=== PATIENT | male | born 1965 | race Caucasian/White ===

== ENCOUNTER 2017-05-26 19:00 | Emergency (ER) | payer OTHER ==
[~2017-05-26] VITALS: Ht 182.9 cm; Wt 107.5 kg
[2017-05-26 19:09] VITALS: TEMP 36.8; Ht 182.9 cm; Wt 107.5 kg
[2017-05-26] MEDS ORDERED: KETOROLAC TROMETHAMINE 30 MG/ML VIAL IV STA (19:18)
[2017-05-26] MEDS ORDERED: ONDANSETRON INJ 2 MG/ML 2 ML VIAL IV STA (19:18)
[2017-05-26] MEDS ORDERED: MoRPHine SULFATE 4 MG/ML 1 ML CARP\\VIAL IV STA (19:18)
[2017-05-26 19:42] LABS: BASO % 0.4 %; BASO ABS # 0.05 K/uL (0-0.2); EOS % 1.3 %; EOS ABS # 0.17 K/uL (0-0.5); HEMATOCRIT 41.6 % (42-52); HEMOGLOBIN 14.4 g/dL (14.0-18.0); IG# 0.04 K/uL (0.00-0.02); LYMPH % 18.1 %; LYMPH ABS # 2.45 K/uL (1.2-3.4); MEAN CELL VOLUME 88.7 fL (80-100); MEAN CORPUSCULAR HEMOGLOBIN 30.7 pg (25-34); MEAN CORPUSCULAR HGB CONC 34.6 g/dl (32-36); MEAN PLATELET VOLUME 9.2 fL (7.4-10.4); MONO % 7.6 %; MONO ABS # 1.03 K/uL (0.11-0.59); NEUT % 72.3 %; NEUT ABS # 9.76 K/uL (1.4-6.5); PLATELET COUNT 336 K/uL (130-400); RED CELL DISTRIBUTION WIDTH CV 13.1 % (11.5-14.5); RED CELL DISTRIBUTION WIDTH SD 42.1 fL (36.4-46.3)
--- NOTE | 2017-05-26 19:58 | DIAGNOSTIC IMAGING REPORT ---
Right great toe 3 views CLINICAL HISTORY: Right great toe pain COMPARISON: None. DISCUSSION: No acute fractures or dislocations are visualized. There are mild arthritic changes the level the first metatarsal phalangeal joint. There is a small first metatarsal head spur. No destructive lesions are visualized IMPRESSION: 1. No acute fractures 2. Mild arthritic changes with soft tissue swelling at the level the first metatarsal phalangeal joint Electronically signed by: William Aquino M.D. 05/26/2017 7:57 PM Dictated Date/Time: 05/26/2017 7:56 PM
[2017-05-26 19:59] LABS: CALCIUM 8.8 mg/dl (8.5-10.1); CREATININE 1.21 mg/dl (0.60-1.40); POTASSIUM 4.7 mmol/L (3.5-5.1); URIC ACID 6.8 mg/dl (2.6-7.2)
[2017-05-26] MEDS ORDERED: PRED20TA2 PO ×2 (20:54→20:56)
[2017-05-26] MEDS ORDERED: INDO50CA97 PO (20:54)
[2017-05-26] MEDS ORDERED: CEPH-571 PO (20:55)
[2017-05-26] MEDS ORDERED: PRED20TA PO (20:56)
[2017-05-26] MEDS ORDERED: CEPHALEXIN MONOHYDRATE 250 MG CAP PO ONE (21:00)
[2017-05-26 21:10] VITALS: BP 142/87; PULSE 78; O2SAT 98
--- NOTE | 2017-05-26 21:57 | EMERGENCY ROOM VISIT NOTE ---
History Report prepared by Barbara: Royal Pérez Under the Supervision of: Dr. Eric Altamirano D.O. First contact with patient: 19:11 Chief Complaint: FOOT PAIN Stated Complaint: GOUT RIGHT FOOT History of Present Illness The patient is a 51 year old male who presents to the Emergency Room with complaints of persistent gout flare-up on right foot for three weeks. The patient speaks Mauritian and the son translated for the patient. The patient has a history of gout and has four flare ups in the past. He notes the pain is worse than his previous flare ups. He went to [facility] and was given steroids. Pain is a 10 out of 10. It is sharp and stabbing. Located in the right first toe. Currently significantly worse upon palpation. He notes the steroids provided mild relief, though he ran out and then his symptoms worsened. He describes the pain as throbbing. He denies any headaches, chest pain, abdominal pain, or fevers. No tingling or numbness. No other rashes. Source of History: patient, family Onset: three weeks Position: foot (right) Quality: other (throbbing, gout flare-up) Timing: other (persistent) Associated Symptoms: No fevers, No headache, No chest pain, No abdominal pain Review of Systems See HPI for pertinent positives & negatives. A total of 10 systems reviewed and were otherwise negative. Past Medical & Surgical Medical Problems: (1) Gout Family History No pertinent family history Social History Smoking Status: Never Smoker Smokeless Tobacco Use: No Alcohol Use: none Drug Use: none Marital Status: Housing Status: lives with family Occupation Status: employed Current/Historical Medications Scheduled Cephalexin (Keflex), 1 CAP PO QID Indomethacin (Indocin), 50 MG PO TID Prednisone (Prednisone), 0.5 TAB PO DAILY Allergies Coded Allergies: No Known Allergies (Unverified , 05/26/17) Physical Exam Vital Signs Date Time Temp Pulse Resp B/P (MAP) Pulse Ox O2 Delivery O2 Flow Rate FiO2 05/26/17 21:10 78 16 142/87 98 05/26/17 19:09 36.8 85 18 135/80 97 Room Air Physical Exam GENERAL: Sitting up in bed, alert, well appearing, well nourished, no distress, non-toxic EYE EXAM: normal conjunctiva. OROPHARYNX: no exudate, no erythema, lips, buccal mucosa, and tongue normal and mucous membranes are moist NECK: supple, no nuchal rigidity, no adenopathy, non-tender LUNGS: Clear to auscultation. Normal chest wall mechanics HEART: no murmurs, S1 normal and S2 normal ABDOMEN: abdomen soft, non-tender, normo-active bowel sounds, no masses, no rebound or guarding. BACK: Back is symmetrical on inspection and there is no deformity, no midline tenderness, no CVA tenderness. SKIN: no rashes and no bruising UPPER EXTREMITIES: upper extremities are grossly normal. LOWER EXTREMITIES: No pitting edema. Right foot with erythema and tenderness over 1st MTP tracking distally down the toe. Skin is warm and acutely tender. Skin intact. DP 2/4. Gross sensation intact. NEURO EXAM: Normal sensorium, cranial nerves II-XII grossly intact, normal speech, no gross weakness of arms, no gross weakness of legs. Medical Decision & Procedures ER Provider Diagnostic Interpretation: Radiology results as stated below per my review and the radiologist's interpretation: Right great toe 3 views CLINICAL HISTORY: Right great toe pain COMPARISON: None. DISCUSSION: No acute fractures or dislocations are visualized. There are mild arthritic changes the level the first metatarsal phalangeal joint. There is a small first metatarsal head spur. No destructive lesions are visualized IMPRESSION: 1. No acute fractures 2. Mild arthritic changes with soft tissue swelling at the level the first metatarsal phalangeal joint Electronically signed by: William Aquino M.D. 05/26/2017 7:57 PM Dictated Date/Time: 05/26/2017 7:56 PM Laboratory Results 05/26/17 19:30 Red Blood Count 4.69, Mean Corpuscular Volume 88.7, Mean Corpuscular Hemoglobin 30.7, Mean Corpuscular Hemoglobin Concent 34.6, Mean Platelet Volume 9.2, Neutrophils (%) (Auto) 72.3, Lymphocytes (%) (Auto) 18.1, Monocytes (%) (Auto) 7.6, Eosinophils (%) (Auto) 1.3, Basophils (%) (Auto) 0.4, Neutrophils # (Auto) 9.76, Lymphocytes # (Auto) 2.45, Monocytes # (Auto) 1.03, Eosinophils # (Auto) 0.17, Basophils # (Auto) 0.05 05/26/17 19:30 Test 05/26/17 19:30 White Blood Count 13.50 K/uL (4.8-10.8) Red Blood Count 4.69 M/uL (4.7-6.1) Hemoglobin 14.4 g/dL (14.0-18.0) Hematocrit 41.6 % (42-52) Mean Corpuscular Volume 88.7 fL (80-100) Mean Corpuscular Hemoglobin 30.7 pg (25-34) Mean Corpuscular Hemoglobin Concent 34.6 g/dl (32-36) Platelet Count 336 K/uL (130-400) Mean Platelet Volume 9.2 fL (7.4-10.4) Neutrophils (%) (Auto) 72.3 % Lymphocytes (%) (Auto) 18.1 % Monocytes (%) (Auto) 7.6 % Eosinophils (%) (Auto) 1.3 % Basophils (%) (Auto) 0.4 % Neutrophils # (Auto) 9.76 K/uL (1.4-6.5) Lymphocytes # (Auto) 2.45 K/uL (1.2-3.4) Monocytes # (Auto) 1.03 K/uL (0.11-0.59) Eosinophils # (Auto) 0.17 K/uL (0-0.5) Basophils # (Auto) 0.05 K/uL (0-0.2) RDW Standard Deviation 42.1 fL (36.4-46.3) RDW Coefficient of Variation 13.1 % (11.5-14.5) Immature Granulocyte % (Auto) 0.3 % Immature Granulocyte # (Auto) 0.04 K/uL (0.00-0.02) Anion Gap 5.0 mmol/L (3-11) Est Creatinine Clear Calc Drug Dose 92.5 ml/min Estimated GFR () 80.4 Estimated GFR (Non- 69.4 BUN/Creatinine Ratio 11.3 (10-20) Uric Acid 6.8 mg/dl (2.6-7.2) Calcium Level 8.8 mg/dl (8.5-10.1) Laboratory results per my review. Medications Administered Medications (Trade) Dose Ordered Sig/Chris Route Start Time Stop Time Status Last Admin Dose Admin Ketorolac Tromethamine (Toradol Inj) 30 mg NOW STAT IV 05/26/17 19:18 05/26/17 19:19 DC 05/26/17 19:50 30 MG Morphine Sulfate (MoRPHine SULFATE INJ) 4 mg NOW STAT IV 05/26/17 19:18 05/26/17 19:19 DC 05/26/17 19:49 4 MG Ondansetron HCl (Zofran Inj) 4 mg NOW STAT IV 05/26/17 19:18 05/26/17 19:19 DC 05/26/17 19:50 4 MG Cephalexin Monohydrate (Keflex Cap) 500 mg NOW ONCE PO 05/26/17 21:00 05/26/17 21:01 DC 05/26/17 21:09 500 MG ED Course ED COURSE: Vital signs were reviewed and showed hypertensive. The patients medical record was reviewed The above diagnostic studies were performed and reviewed. ED treatments and interventions as stated above. 1912: The patient was evaluated in room A12B. A complete history and physical examination was performed. 1917: Ordered Zofran 4 mg IV, Morphine Sulfate 4 mg IV, and Toradol 30 mg IV 2099: Ordered Keflex 500 mg PO 2100: Upon reevaluation, the patient was updated. I discussed my findings with the patient and he understands and agrees with the treatment plan. Based on the patients age, coexisting illnesses, exam and lab findings the decision to treat as an outpatient was made. The patient remained stable while under my care. The patient appeared well at the time of discharge. Medical Decision Prior records reviewed and summarized as above. Triage Nursing notes reviewed. The patient's history was concerning for swelling and redness of the skin. Differential diagnosis: Etiologies such as cellulitis, abscess, MRSA infection, DVT, necrotizing fasciitis, dermatitis, drug eruption, as well as others were entertained. Patient is a 51-year-old male that presents to ER for right toe pain which has been present for the past 3 weeks. He notes he has had exact same symptoms 3-4 times before in the past. He notes this feels like his gout which he typically gets in that toe. Denies any fevers. Labs show a mild leukocytosis of 13.5 thousand. BMP was unremarkable. On exam it does appear to be gout as it is acutely tender to palpation however was concerned with the duration that it has been here i.e. 3 weeks. Based on this I did elect to treat him for a gout flare and did cover him with steroids and indomethacin. I gave him a small dose of steroids as it was giving him indomethacin as well. I also gave him a short course of Keflex in case this is infectious although I favor this is less likely. Discussed with Pt concerning signs and symptoms to watch out for. Pt was instructed to follow up with their PCP and discussed with the patient their option to return to the ED at anytime for persistent or worsening symptoms. The appropriate anticipatory guidance and out-patient management, including indications for return to the emergency department, were explained at length to the patient and understood. [place] Drug Monitoring Program Search Results: no issues identified Medication Reconcilliation Current Medication List: was personally reviewed by me Blood Pressure Screening Patient's blood pressure: Elevated blood pressure Blood pressure disposition: Elevated BP felt to be situational Impression Primary Impression: Foot pain Scribe Attestation The scribe's documentation has been prepared under my direction and personally reviewed by me in its entirety. I confirm that the note above accurately reflects all work, treatment, procedures, and medical decision making performed by me. Departure Information Dispostion Home / Self-Care Prescriptions Prednisone (Prednisone) 20 Mg Tab 0.5 TAB PO DAILY for 4 Days, #2 TAB Prov: Eric Altamirano, DO 05/26/17 Cephalexin (KEFLEX) 500 Mg Cap 1 CAP PO QID for 10 Days, #40 CAP Prov: Eric Altamirano, DO 05/26/17 Indomethacin (INDOCIN) 50 Mg Cap 50 MG PO TID, #21 CAP WITH FOOD UNTIL PAIN RESOLVES Prov: Eric Altamirano, DO 05/26/17 Referrals No Doctor, Assigned (PCP) Forms HOME CARE DOCUMENTATION FORM, IMPORTANT VISIT INFORMATION Patient Instructions Gout Attack Tx, My [facility] Additional Instructions Please follow up with your primary care doctor with in the next 24 hours. Any worsening of your symptoms, please return to the ED immediately. This includes any fevers greater than 100.4, worsening pain, chest pain, shortness breath, persistent nausea, vomiting, unable to eat or drink, or any other concerning signs or symptoms from your standpoint. Please take antibiotics as prescribed. Problem Qualifiers Primary Impression: Foot pain Laterality: right Qualified Codes: M79.671 - Pain in right foot
== END 2017-05-26 21:10 | disposition home or self-care (01) ==
LOC: C.EDB 19:01 → C.EDA 21:10
DX: M79.671 Pain in right foot (principal)

== ENCOUNTER 2024-02-02 23:15 | Inpatient (IN) ==
[2024-02-02 23:50] LABS: Basophils # (auto) 0.08 K/uL (0.00-0.20); Basophils % (auto) 0.8 %; Eosinophils # (auto) 0.18 K/uL (0.00-0.50); Eosinophils % (auto) 1.9 %; Hematocrit (blood only) 41.9 % (42.0-52.0); Hemoglobin 14.3 g/dl (14.0-18.0); Immature Granulocytes # (auto) 0.02 K/uL (0.01-0.20); Immature Granulocytes % (auto) 0.2 %; Lymphocytes # (auto) 3.39 K/uL (1.20-3.40); Lymphocytes % (auto) 35.1 %; Mean Corpuscular Hemoglobin 30.8 pg (25.0-34.0); Mean Corpuscular Hgb Conc 34.1 g/dL (32.0-36.0); Mean Corpuscular Volume 90.3 fL (80.0-100.0); Mean Platelet Volume 10.2 fL (9.4-12.4); Monocytes # (auto) 0.85 K/uL (0.11-0.59); Monocytes % (auto) 8.8 %; Neutrophils # (auto) 5.13 K/uL (1.40-6.50); Neutrophils % (auto) 53.2 %; Platelet Count 259 K/uL (130-400); RDW Coefficient of Variation 12.8 % (11.5-14.5); Red Blood Count 4.64 M/uL (4.70-6.10); White Blood Count 9.65 K/ul (4.8-10.8)
--- NOTE | 2024-02-02 23:55 | Emergency Department Note ---
Impression & Plan Chest pain, Non-ST elevation CT (NSTEMI) ED Provider Note ED Provider Note NAME: ANTONIO LOCO AGE:58 SEX: Male : 1965 ARRIVES VIA: Private vehicle INFORMANT: Patient ED PROVIDER(s): Chelle Tinajero DO CHIEF COMPLAINT: Chest pain HPI: This is a 58 yo male who presents to the ER due to concern for chest pain. Significant other at bedside helps with translation. Patient began having central chest pressure/heaviness last evening. He went to bed and when he awoke the symptoms were gone. This evening the symptoms returned and they were concerned and came here for additional evaluation. No prior similar episodes. No history of heart or lung problems. No recent fevers, chills, or URI symptoms. Significant other states he does have a physical job but the activity required that has not changed recently. No other trauma. He does occasionally have heartburn, although states this feels different. Chest pain is otherwise nonradiating. He denies any accompanying shortness of breath, nausea or vomiting, dizziness, or diaphoresis. PAST MEDICAL HISTORY:See Below PAST SURGICAL HISTORY:See Below FAMILY HISTORY:See Below SOCIAL HISTORY:See Below HOME MEDICATIONS:See Below ALLERGIES:See Below VITALS:See Below PHYSICAL EXAMINATION: GENERAL: alert, well appearing, well nourished, no distress, non-toxic EYE EXAM: normal conjunctiva, PERRL and EOM's grossly intact OROPHARYNX: no exudate, no erythema, lips, buccal mucosa, and tongue normal and mucous membranes are moist NECK: supple, no nuchal rigidity, no adenopathy, non-tender LUNGS: Clear to auscultation. Normal chest wall mechanics, no w/r/r HEART: no murmurs, S1 normal and S2 normal, no pain with palpation ABDOMEN: abdomen soft, non-tender, normo-active bowel sounds, no masses, no rebound or guarding. BACK: Back is symmetrical on inspection and there is no deformity, no midline tenderness, no CVA tenderness. SKIN: no rashes, petechiae, orbruising UPPER EXTREMITIES: upper extremities are grossly normal. FROM, nml pulses b/l. LOWER EXTREMITIES: No pitting edema. FROM, nml pulses b/l. NEURO EXAM: Normal sensorium, cranial nerves II-XII grossly intact, normal speech, no facial droop,nogross weakness of arms, no gross weakness of legs. Gross sensation intact. No ataxia. Vital Signs: reviewed and remarkable Differential Diagnosis: acute coronary syndrome, pericarditis, pulmonary embolus, aortic dissection, pneumonia, pneumothorax, musculoskeletal pain, shingles, GERD, GI bleed, as well as others were considered MEDICAL DECISION MAKING: This is a 58-year-old male presents emergency ferment due to concern for chest pain. Patient was afebrile and hemodynamically stable on arrival. Labs drawn and sent, IV established, EKG and chest ray performed at bedside interpreted by me and patient monitored on telemetry. Patient given IV Tylenol and IV Pepcid as a precaution. EKG with very subtle findings compared to an EKG from 6 months ago. Lab reported patient's troponin significantly elevated. When I went to update the patient on this elevated troponin and need for additional evaluation, he reported he no longer had any chest pain. We discussed the need for further evaluation and likely cardiology consult and cardiac catheterization. Patient and significant other at bedside verbalized understanding were in agreement with the plan. Case discussed with the hospitalist team for additional evaluation and management. Given patient is pain-free there was no ST elevation noted on the EKG I do not feel patient requires immediate heart alert activation. Will continue to monitor for any changes and perform serial EKGs. Patient started on heparin drip and given aspirin additionally. Consultation(s): 0105: Discussed with Dr. Doty, [place] hospitalist team, for additional evaluation and mgmt. ER Treatment Provided: See below Diagnostics Interpreted By Me: -ECG: nsr at 70, nml axis, nml intervals, inverted T waves noted in aVL and V2, with slight appearance of evolving ST depression in lead I, V4 through V6; in comparison to a prior EKG from 09/10/2023, these ST changes are new however the T wave inversions are old -Cardiac Monitoring: An order was placed for continuous cardiac monitoring. The monitor shows a rate of 70 with normal sinus rhythm. -Laboratory studies: As stated above and show below. -Imaging studies: X-ray Chest: A single view study of the chest was reviewed and was negative for cardiomegaly, focal infiltrate, effusion, pulmonary edema, or wide mediastinum. Triage Nursing Note Reviewed Prior/Outside Records Reviewed Critical care: Critical care of 39 min performed to assess and manage high likelihood of life- threatening ACS, involving labs and imaging performed with assessment to evaluate chest pain diagnosis with frequent reassessment. This time includes bedside time, treatment discussions with patient/family/consultants, documentation time and excludes procedure time. Past Med/Surg History Problem List (Updated 02/03/24 @ 01:53 by Chelle Tinajero DO) Non-ST elevation CT (NSTEMI) (Acute) Chest pain (Acute) Hydronephrosis of right kidney Right ureteral stone Nephrolithiasis Foot pain (Acute) Gout (Chronic) Medical History Kidney stones Gout Obesity, Class I, BMI 30.0-34.9 (see actual BMI) (02/04/15) Low testosterone in male (06/23/22) Surgical History History of appendectomy Family History Other No family history of adverse response to anesthesia Social History (Updated 09/04/23 @ 12:09 by Andres Tyson) Smoking Status: Never smoker Second Hand Exposure: No; Do You Dip or Chew Tobacco: No; Hx Alcohol Use: No Hx Substance Use: No Preferred Language: Lebanese Communication Ability: Effective Communication Ability Comment: can sign own consent, will need manager business banking device Communication Tools: Other Supervisor Mail Carriers Required: Yes Beliefs That Will Affect Care: None marital status: Current Living Situation: Spouse current occupational status: employed 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 Feels Safe at Home: Yes Assistive Devices: None Allergies Allergies Allergy/AdvReac Type Severity Reaction Status Date / Time No Known Allergies Allergy Verified 02/03/24 00:51 Home Meds Home Medications Medication Instructions Recorded Confirmed No Known Home Medications 02/03/24 02/03/24 Results & Data (ED) Vital Signs Vital Signs - 24 hr 02/02/24 23:19 02/02/24 23:29 02/02/24 23:42 Temperature 36.5 C Temperature Source Temporal Artery Scan Pulse Rate 77 76 Pulse Rate from SpO2 Sensor Respiratory Rate 16 Respiratory Effort / Characteristics Non-Labored Spontaneous Respiratory Depth Normal Respiratory Pattern Regular Blood Pressure 142/89 H Blood Pressure Mean 106 Blood Pressure Position Sitting Pulse Oximetry 98 96 Oxygen Delivery Method Room Air Room Air Sepsis Recent Fever Within 48 Hours No Sepsis New/Unexplained Change in Mental Status N/A Sepsis Action Taken by Nursing No Action Required 02/03/24 00:00 02/03/24 00:03 02/03/24 00:30 Temperature Temperature Source Pulse Rate 69 63 Pulse Rate from SpO2 Sensor Respiratory Rate 21 22 Respiratory Effort / Characteristics Respiratory Depth Respiratory Pattern Blood Pressure 132/86 124/82 Blood Pressure Mean 108 106 Blood Pressure Position Pulse Oximetry 96 97 97 Oxygen Delivery Method Room Air Sepsis Recent Fever Within 48 Hours Sepsis New/Unexplained Change in Mental Status Sepsis Action Taken by Nursing 02/03/24 01:06 Temperature Temperature Source Pulse Rate 69 Pulse Rate from SpO2 Sensor 73 Respiratory Rate 18 Respiratory Effort / Characteristics Respiratory Depth Respiratory Pattern Blood Pressure 122/82 Blood Pressure Mean 87 Blood Pressure Position Pulse Oximetry 98 Oxygen Delivery Method Sepsis Recent Fever Within 48 Hours Sepsis New/Unexplained Change in Mental Status Sepsis Action Taken by Nursing Laboratory Data 02/02/24 23:30 02/02/24 23:30 Lab Results 02/02/24 Range/Units 23:30 WBC 9.65 (4.8-10.8) K/ul RBC 4.64 L (4.70-6.10) M/uL Hgb 14.3 (14.0-18.0) g/dl Hct 41.9 L (42.0-52.0) % MCV 90.3 (80.0-100.0) fL MCH 30.8 (25.0-34.0) pg MCHC 34.1 (32.0-36.0) g/dL RDW Std Deviation 42.0 (36.4-46.3) fL RDW Coeff of Joel 12.8 (11.5-14.5) % Plt Count 259 (130-400) K/uL MPV 10.2 (9.4-12.4) fL Immature Gran % (Auto) 0.2 % Neut % (Auto) 53.2 % Lymph % (Auto) 35.1 % Gladwin % (Auto) 8.8 % Eos % (Auto) 1.9 % Baso % (Auto) 0.8 % Neut # (Auto) 5.13 (1.40-6.50) K/uL Lymph # (Auto) 3.39 (1.20-3.40) K/uL Gladwin # (Auto) 0.85 H (0.11-0.59) K/uL Eos # (Auto) 0.18 (0.00-0.50) K/uL Baso # (Auto) 0.08 (0.00-0.20) K/uL Immature Gran # (Auto) 0.02 (0.01-0.20) K/uL D-Dimer < 190 (0-500) ug/L FEU Sodium 138 (136-145) mmol/L Potassium 4.3 (3.5-5.1) mmol/L Chloride 104 (98-107) mmol/L Carbon Dioxide 28 (21-32) mmol/L Anion Gap 6 (3-11) BUN 16 (6-23) mg/dl Creatinine 1.14 (0.6-1.4) mg/dl Est Cr Clr Drug Dosing 93.2 ml/min eGFR 75.01 BUN/Creatinine Ratio 14.0 (10-20) Glucose 114 H (70-99(Fasting)) mg/dl Calcium 9.4 (8.6-10.3) mg/dl Total Bilirubin 0.4 (0.2-1.0) mg/dl AST 42 H (13-39) U/L ALT 21 (7-52) U/L Alkaline Phosphatase 51 (34-104) U/L Troponin I High Sens 2543.2 H* (0-20) pg/ml Total Protein 7.1 (6.0-8.3) gm/dl Albumin 4.0 (3.4-5.0) gm/dl Globulin 3.1 (2.5-4.0) gm/dl Albumin/Globulin Ratio 1.3 (0.9-2) Lipase 56 (11-82) U/L Administered Medications Heparin Sodium/Dextrose (Heparin Sodium/Dextrose) 25,000 units in 500 mls @ 20 mls/hr IV .Q24H [facility]; Protocol Stop: 03/04/24 00:59 Last Admin: 02/03/24 01:22 Dose: 1,000 units/hr, 20 mls/hr Documented By: ISMAEL Co-signed By: ANDRE Sodium Chloride (Nss) 1,000 mls @ 125 mls/hr IV .Q8H LUI Stop: 02/04/24 00:44 Last Admin: 02/03/24 01:04 Dose: 125 mls/hr Documented By: ISMAEL Discontinued Medications Aspirin (Aspirin Chew 324 Mg) 324 mg PO NOW STA Stop: 02/03/24 00:42 Last Admin: 02/03/24 01:03 Dose: 324 mg Documented By: ISMAEL Heparin Sodium (Porcine) (Heparin Sod (Porcine) 1000 Unit/Ml) 1 units IV NOW ONE Stop: 02/03/24 00:58 Last Admin: 02/03/24 01:21 Dose: 4,000 units Documented By: ISMAEL Co-signed By: ANDRE Heparin Sodium/Dextrose (Heparin Iv Adult Wt-Based Low-Dose W/ Initial Bolus Protocol) 1 each IV NOW STA; Protocol Stop: 02/03/24 00:42 Last Admin: 02/03/24 01:24 Dose: Not Given Documented By: ISMAEL Acetaminophen (Ofirmev) 1,000 mg in 100 mls @ 400 mls/hr IV NOW STA Stop: 02/02/24 23:53 Last Infusion: 02/03/24 00:15 Dose: Infused Documented By: Admin: 02/02/24 23:56 Dose: 400 mls/hr Documented By: ISMAEL Famotidine (Pepcid 20mg Iv Push) 20 mg in 5 mls @ 2.5 mls/min IV NOW STA Stop: 02/02/24 23:40 Last Admin: 02/02/24 23:56 Dose: 2.5 mls/min Documented By: ISMAEL Nitroglycerin (Nitroglycerin 2% Ointment 30gm Tube) 0.5 inch EXT NOW STA Stop: 02/03/24 00:42 Last Admin: 02/03/24 01:04 Dose: 0.5 inch Documented By: ISMAEL Discharge Plan Visit Data Chief Complaint: Chest Pain Stated Complaint: CHEST PAIN ED Provider: Chelle Tinajero Discharge Problem: Chest pain, Non-ST elevation CT (NSTEMI) Forms Stand Alone Forms: RxApps Prescriptions Prescriptions: No Action No Known Home Medications Referrals Referrals: [facility],Medicine [Primary Care Provider] -
[2024-02-02] MEDS: ACETAMINOPHEN 1,000 MG/100 ML VIAL IV STA (23:56)
[2024-02-02] MEDS: FAMOTIDINE 20MG IV PUSH 20 MG/5 ML SYR IV STA (23:56)
[2024-02-03 00:08] LABS: Albumin Globulin Ratio 1.3 (0.9-2); Bilirubin,Total 0.4 mg/dl (0.2-1.0); Calcium 9.4 mg/dl (8.6-10.3); Creatinine Clr Calc Pharmacy 93.2 ml/min; Globulin 3.1 gm/dl (2.5-4.0); Potassium 4.3 mmol/L (3.5-5.1); Total Protein 7.1 gm/dl (6.0-8.3)
[2024-02-03 00:24] LABS: D Dimer < 190 ug/L FEU (0-500)
[2024-02-03 00:29] LABS: Troponin I High Sensitivity 2543.2 pg/ml (0-20)
[2024-02-03] MEDS: ASPIRIN CHEW 324 MG PO STA (01:03)
[2024-02-03] MEDS: NITROGLYCERIN 2% OINTMENT 30GM TUBE EXT STA (01:04)
[2024-02-03] MEDS: SODIUM CHLORIDE 0.9% 1,000 ML IV SCH (01:04)
--- NOTE | 2024-02-03 01:13 | History & Physical Report ---
Date of Service February 03, 2024 Assessment & Plan (1) Non-ST elevation GA (NSTEMI): Plan: No ST elevations noted on EKG. CP resolved. Initial trop significantly elevated at 2543.2. 2 hour repeat pending. Patient started on heparin gtt, nitropaste applied, and given 324 ASA chew. Will start daily 81 mg ASA. Reviewed labs from CV - patient with mild dyslipidemia total 219, LDL 129, HDL 45. Started on moderate intensity statin. Consult cards for possible cardiac cath. IVF @ 125 mL/hr while NPO/giving short acting vasodilators. Trend Trop to peak Medical management - ASA, statin, HbA1c, lipids, TSH NPO for possible cath cards consult - appreciate recs maintain CP free status - can do PRN nitro, morphine, nitropaste etc if recurrent CP get EKG, if refractory or ST elevations develop - call heart alert (2) Chest pain: Plan: See above (3) Gout: Plan: Per CV chart review patient is on allopurinol. Not listed on med list in [facility]. Can resume if confirmed. (4) Dyslipidemia: Plan: Noted in labs outpatient > 1 year ago - Tc 219 LDL 129 HDL 45. Calculated ASCVD risk as intermediate with a 7.7% risk of cardiovascular event in the next 10 years. Would start statin regardless of possible cath findings. Plan Code status: full DVT ppx: heparin gtt, SCDs FENGI: NPO, IVF @ 125 mL/hr Dispo: PCU/Tele History of Present Illness Chief Complaint: CP Primary Care Provider: [facility] 58 y/o with a PMHx of gout and dyslipidemia here for evaluation of chest pain. Patient with non-radiating substernal chest pain. No SOB or diaphoresis. No nausea or vomiting. No change in bowel or urinary habits. No blood in the stool. No abdominal pain or other concerns. No calf pain. No recent long car trips or plane rides. Symptoms started the evening of 01/31 and resolved after a night of sleep. Symptoms recurred today prompting evaluation in the ED. Patient received IV Tylenol and famotidine. Work up was initiated and significant for a trop of 2543.2. Patient given ASA 324 chew and started on a heparin gtt. No ST elevations noted on EKG and chest pain had resolved upon reassessment, so heart alert was not called. Hospitalist team consulted for admission for NSTEMI. Upon my interview patient is chest pain free. No new complaints. Expresses understanding of current condition and is accepting of admission with a full code status. Patient primarily Surinamese speaking. at bedside who interprets what the patient does not understand. Allergies Allergy/AdvReac Type Severity Reaction Status Date / Time No Known Allergies Allergy Verified 02/03/24 00:51 Home Medications Medication Instructions Recorded Confirmed Type No Known Home Medications 02/03/24 02/03/24 History Past Med/Surg History Problem List Dyslipidemia Non-ST elevation GA (NSTEMI) (Acute) Chest pain (Acute) Hydronephrosis of right kidney Right ureteral stone Nephrolithiasis Foot pain (Acute) Gout (Chronic) Medical History Kidney stones Gout Obesity, Class I, BMI 30.0-34.9 (see actual BMI) (02/04/15) Low testosterone in male (06/23/22) Surgical History History of appendectomy Family History Other No family history of adverse response to anesthesia Social History Smoking Status: Never smoker Second Hand Exposure: No; Do You Dip or Chew Tobacco: No; Hx Alcohol Use: No Hx Substance Use: No Preferred Language: Surinamese Communication Ability: Effective Communication Ability Comment: can sign own consent, will need medicare insurance specialist device Communication Tools: Other Carrier Loader Required: Yes Beliefs That Will Affect Care: None marital status: Current Living Situation: Spouse current occupational status: employed 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 Feels Safe at Home: Yes Assistive Devices: None Review of Systems 2 Review of Systems: See HPI Physical Exam 2 Physical Exam: Gen: well appearing patient in NAD HEENT: AT NC MMM Resp: CTAB no wheezing no increased work of breathing CV: RRR no m/r/g clinically well perfused Abd: soft, non-distended MSK: no obvious deformities Skin: no rashes or bruising Neuro: alert and oriented Psych: appropriate mood and affect Results & Data Results & Data Vital Signs (Past 12 Hours) Vital Signs Temp Pulse Resp BP Pulse Ox O2 Del Method 02/03/24 01:06 69 18 122/82 98 02/03/24 00:30 63 22 124/82 97 02/03/24 00:03 97 Room Air 02/03/24 00:00 69 21 132/86 96 02/02/24 23:42 96 Room Air 02/02/24 23:29 76 02/02/24 23:19 36.5 C 77 16 142/89 H 98 Room Air Laboratory Results 02/02/24 23:30 02/02/24 23:30 Code Status & VTE Plan VTE Prophylaxis Plan Reason for no VTE drug order: Contraindicated Supervising Physician Co-Signing Physician Notes Patient seen and examined, chart reviewed, case discussed with Dr. Mane and I agree with the assessment and plan as above. Patient is a 58yo male presenting with chest pain. Initial glhxmisk=5693.[address] elevations on EKG Patient comfortable on exam, no chest pain +S1/S2, regular, no m/r/g CTA, no rales/rhonchi/wheezes Abd soft, NT/ND Ext warm, well perfused without clubbing/cyanosis or edema Labs and images reviewed Assessment/Plan NSTEMI - patient with CP, elevation of troponin on arrival 2543.2 --> 3154.8. EKG with some inferior-lateral ST depression. Patient has been started on a heparin gtt Remains chest pain free Admit to PCU Continue Heparin gtt Initiate daily ASA and Crestor Will keep NPO for possible cath in AM Cardiology input appreciated Remainder as above Resident Activity Tracking Resident Involvement: Resident Care Provided Care Provided: Adult Hospital Medicine
[2024-02-03] MEDS: HEPARIN SOD (PORCINE) 1000 UNIT/ML IV ONE (01:21)
[2024-02-03] MEDS: HEPARIN SODIUM/DEXTROSE 25,000 UNITS/500 ML BAG IV SCH (01:22)
[2024-02-03] MEDS: Heparin IV Adult Wt-Based Low-Dose w/ INITIAL Bolus Protocol IV STA (01:24)
[2024-02-03 02:06] LABS: INR 0.9 (0.9-1.1); Partial Thromboplastin Ratio 0.9; Partial Thromboplastin Time 25 Seconds (21-31); Prothrombin Time 10.3 Seconds (9.0-12.0)
--- NOTE | 2024-02-03 02:10 | XRay Report ---
Exam(s): XR CXR 1 VIEW EXAM: XR Chest, 1 View CLINICAL HISTORY: Reason for exam: Chest pain, nonspecific. TECHNIQUE: Frontal view of the chest. COMPARISON: Prior chest x-ray from September 10, 2023. FINDINGS: Lungs: Mild to moderate peribronchial thickening of the central and lower lobe bronchi with increased interstitial opacities in the lower lobes. No consolidation. Pleural space: Unremarkable. No pneumothorax. Heart: Unremarkable. No cardiomegaly. Mediastinum: Unremarkable. Normal mediastinal contour. Bones/joints: Unremarkable. No acute fracture. IMPRESSION: Findings concerning for bronchitis with pneumonitis, which may be of infectious or inflammatory etiologies. No consolidation or pleural effusion. Electronically signed by: Sherri Dockery MD 02/03/24 02:09 AM
[2024-02-03] MEDS ORDERED: ONDANSETRON INJ 2 MG/ML 2 ML VIAL IV PRN (03:28)
--- NOTE | 2024-02-03 03:35 | Billing Data ---
Date of Service February 03, 2024 Coding Level of Care Code 42499 INT INP/OBS CARE
[2024-02-03 07:36] LABS: Hematocrit (blood only) 40.5 % (42.0-52.0); Hemoglobin 13.8 g/dl (14.0-18.0); Mean Corpuscular Hemoglobin 30.9 pg (25.0-34.0); Mean Corpuscular Hgb Conc 34.1 g/dL (32.0-36.0); Mean Corpuscular Volume 90.8 fL (80.0-100.0); Mean Platelet Volume 10.3 fL (9.4-12.4); Platelet Count 236 K/uL (130-400); RDW Coefficient of Variation 12.9 % (11.5-14.5); RDW Standard Deviation 42.5 fL (36.4-46.3); Red Blood Count 4.46 M/uL (4.70-6.10); White Blood Count 7.45 K/ul (4.8-10.8)
[2024-02-03 07:56] LABS: Albumin Globulin Ratio 1.4 (0.9-2); Albumin Level 3.8 gm/dl (3.4-5.0); BUN Creatinine Ratio 14.4 (10-20); Bilirubin,Total 0.5 mg/dl (0.2-1.0); Calcium 8.9 mg/dl (8.6-10.3); Chol HDL Ratio 4.7 (0-5); Creatinine Clr Calc Pharmacy 109.2 ml/min; Globulin 2.8 gm/dl (2.5-4.0); Potassium 4.5 mmol/L (3.5-5.1); Total Protein 6.6 gm/dl (6.0-8.3)
[2024-02-03 08:05] LABS: ANTI-Xa, UFH(UnfractionatedHep 0.26 IU/ml (0.3-0.7)
[2024-02-03 08:11] LABS: Thyroid Stimulating Hormone 1.629 uIu/ml (0.300-4.500)
[2024-02-03] MEDS: ROSUVASTATIN CALCIUM 20 MG TAB PO SCH (08:42)
[2024-02-03] MEDS: ASPIRIN 81 MG ECTAB PO SCH (08:42)
--- NOTE | 2024-02-03 09:11 | Cardiology Consultation ---
Date of Consultation February 03, 2024 Assessment & Plan (1) Non-ST elevation KS (NSTEMI): (2) Dyslipidemia: Plan ASSESSMENT/PLAN: 1. NSTEMI: Chest pain-free currently. Discussed the diagnosis. Recommend coronary angiography. Risk and benefits of the procedure were discussed with him in detail. He is given informed consent to proceed with cardiac catheterization. He was made aware that PCI is available. He was made aware that CABG is not available at this facility. Continue aspirin. Recommend high intensity statin therapy. Continue heparin drip for now. Keep n.p.o. until after the procedure. Cardiac rehab. Echo ordered and currently pending. 2. Dyslipidemia: HDL low. LDL elevated if found to have CAD. High intensity statin therapy if CAD confirmed. 3. Disposition: Cardiology will continue to follow. Patient care communicated with Dr. Veras of the primary hospitalist service. Highly complex medical issues. Thank you for allowing me to participate in the care of your patient. Please call for any other questions or concerns. Sincerely, Mushtaq Gayle M.D. History of Present Illness Reason for Consultation: "CP, elevated trop" Requesting Physician: Nkechi Mane MD Attending Physician: Eric Veras, History of Present Illness Mr. Honeycutt is a very pleasant 58-year-old gentleman who has a history of dyslipidemia and gout. He is Zambian-speaking. History was obtained via [place] community living specialist (#[id number]) via translation electronic device. He was admitted on 02/03/2024 with chest discomfort and elevated high- sensitivity troponin, with the initial value of 2543, and trending upward. He describes substernal chest discomfort as a pushing sensation. He first noticed it 2 days ago when in bed. He initially stated that he felt well during the day but after further questioning, had mild chest discomfort with exertion at work. He has noted increased dyspnea on exertion recently at work. While having the pain, he denies radiation, or associated symptoms such as diaphoresis or dyspnea. With the first episode of chest discomfort 2 days ago, he used Advil and diluted vinegar and the pain resolved rather quickly. Last night, he did the same however the symptoms persisted so he came to the hospital. He estimates that this more recent episode lasted 2 hours and resolved in the ER. He has not had any further chest discomfort. He denies shortness of breath currently. He denies syncope, near syncope, palpitations, edema, melena, hematochezia, hematuria, or other bleeding. He denies any recent nausea, vomiting, fevers, or chills. He is active with his job. 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 Although not listed, his only outpatient medication is allopurinol for gout. Review of systems: As above. Family history: No known premature CAD. Social history: He denies tobacco, alcohol, or drug abuse. He lives at home with his and teenage daughter. He has 4 children total. 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 Originally from [facility] and moved to the [facility] in approximately 2005. His was present at the bedside. Allergies Allergy/AdvReac Type Severity Reaction Status Date / Time No Known Allergies Allergy Verified 02/03/24 00:51 Home Medications Medication Instructions Recorded Confirmed Type No Known Home Medications 02/03/24 02/03/24 History Problem List Dyslipidemia Non-ST elevation [place] (NSTEMI) (Acute) Chest pain (Acute) Hydronephrosis of right kidney Right ureteral stone Nephrolithiasis Foot pain (Acute) Gout (Chronic) Patient History Medical History Kidney stones Gout Obesity, Class I, BMI 30.0-34.9 (see actual BMI) (02/04/15) Low testosterone in male (06/23/22) Surgical History History of appendectomy Family History Other No family history of adverse response to anesthesia Social History Smoking Status: Never smoker Second Hand Exposure: No; Do You Dip or Chew Tobacco: No; Hx Alcohol Use: No Hx Substance Use: No Preferred Language: Zambian Communication Ability: Effective Communication Ability Comment: can sign own consent, will need community living specialist device Communication Tools: Other Ornament Stapler Required: Yes Beliefs That Will Affect Care: None marital status: Current Living Situation: Spouse current occupational status: employed 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 Alert. HEENT: Anicteric sclera. Neck: No JVD. No bruits. Normal carotid upstrokes bilaterally. Cardiac: Regular. Normal S1-S2. No murmurs, rubs, or gallops. Pulmonary: Clear to auscultation bilaterally without wheezes, rales, or rhonchi. Abdomen: Soft, nontender, nondistended, with normoactive bowel sounds. No bruits noted. Extremities: 2+ radial pulses bilaterally. 2+ posterior tibialis pulses bilaterally. No edema or cyanosis. Results & Data Vital Signs (Past 12 Hours) Vital Signs Temp Pulse Pulse Resp BP BP Pulse Ox 02/03/24 08:18 36.4 C L 63 17 112/71 93 02/03/24 03:40 64 02/03/24 03:30 36.6 C 72 16 133/84 98 02/03/24 03:01 36.9 C 60 22 113/77 97 02/03/24 02:30 60 17 123/84 96 02/03/24 02:00 66 17 126/89 98 02/03/24 01:27 62 20 125/90 98 02/03/24 01:06 69 18 122/82 98 02/03/24 00:30 63 22 124/82 97 02/03/24 00:03 97 02/03/24 00:00 69 21 132/86 96 02/02/24 23:42 96 02/02/24 23:29 76 02/02/24 23:19 36.5 C 77 16 142/89 H 98 O2 Del Method 02/03/24 08:18 Room Air 02/03/24 03:40 02/03/24 03:30 Room Air 02/03/24 03:01 Room Air 02/03/24 02:30 Room Air 02/03/24 02:00 02/03/24 01:27 02/03/24 01:06 02/03/24 00:30 02/03/24 00:03 Room Air 02/03/24 00:00 02/02/24 23:42 Room Air 02/02/24 23:29 02/02/24 23:19 Room Air Laboratory Results Laboratory Results - last 24 hr 02/02/24 02/03/24 02/03/24 23:30 02:20 07:12 WBC 9.65 7.45 RBC 4.64 L 4.46 L Hgb 14.3 13.8 L Hct 41.9 L 40.5 L MCV 90.3 90.8 MCH 30.8 30.9 MCHC 34.1 34.1 RDW Std Deviation 42.0 42.5 RDW Coeff of Joel 12.8 12.9 Plt Count 259 236 MPV 10.2 10.3 Immature Gran % (Auto) 0.2 Neut % (Auto) 53.2 Lymph % (Auto) 35.1 [place] % (Auto) 8.8 Eos % (Auto) 1.9 Baso % (Auto) 0.8 Neut # (Auto) 5.13 Lymph # (Auto) 3.39 [place] # (Auto) 0.85 H Eos # (Auto) 0.18 Baso # (Auto) 0.08 Immature Gran # (Auto) 0.02 PT 10.3 INR 0.9 APTT 25 PTT Ratio 0.9 D-Dimer < 190 Heparin Anti-Xa, Unfract 0.26 L Sodium 138 139 Potassium 4.3 4.5 Chloride 104 109 H Carbon Dioxide 28 25 Anion Gap 6 5 BUN 16 14 Creatinine 1.14 0.97 Est Cr Clr Drug Dosing 93.2 109.2 eGFR 75.01 91.05 BUN/Creatinine Ratio 14.0 14.4 Glucose 114 H 107 H Calcium 9.4 8.9 Total Bilirubin 0.4 0.5 AST 42 H 41 H ALT 21 21 Alkaline Phosphatase 51 45 Troponin I High Sens 2543.2 H* 3154.8 H* D 3375.0 H* Total Protein 7.1 6.6 Albumin 4.0 3.8 Globulin 3.1 2.8 Albumin/Globulin Ratio 1.3 1.4 Triglycerides 135 Cholesterol 173 LDL Cholesterol, Calc 109 VLDL Cholesterol, Calc 27 HDL Cholesterol 37 Cholesterol/HDL Ratio 4.7 Lipase 56 TSH 1.629 Diagnostic Findings Labs reviewed and notable for high-sensitivity troponin elevation (up to 3375 and trending upward), normal renal function, normal potassium, normal D-dimer, mildly elevated AST, normal ALT, normal TSH, dyslipidemia, stable hemoglobin. ECGs personally reviewed: ECG 02/02/2024 2327: NSR [address] abnormality. Possible septal infarct. ECG 02/03/2024 2:11 AM: Sinus rhythm 64 bpm. Nonspecific T wave abnormality. History and physical report reviewed. Chest x-ray 02/02/2024: Mild to moderate peribronchial thickening of the central and lower lobe bronchi with increased interstitial opacities in the lower lobes per radiology. Chest x-ray image personally reviewed: No obvious infiltrate. No significant pleural effusion. Telemetry personally reviewed: Sinus rhythm. 7 beat ventricular run this morning. Medications Administered Current Inpatient Medications Aspirin (Aspirin 81 Mg Ectab) 81 mg PO DAILY LUI Stop: 03/04/24 08:59 Last Admin: 02/03/24 08:42 Dose: 81 mg Heparin Sodium/Dextrose (Heparin Sodium/Dextrose) 25,000 units in 500 mls @ 20 mls/hr IV .Q24H LUI; Protocol Stop: 03/04/24 00:59 Last Titration: 02/03/24 08:42 Dose: 1,100 units/hr, 22 mls/hr Sodium Chloride (Nss) 1,000 mls @ 125 mls/hr IV .Q8H LUI Stop: 02/04/24 00:44 Last Admin: 02/03/24 08:41 Dose: 125 mls/hr Ondansetron HCl (Ondansetron Inj 2 Mg/Ml 2 Ml Vial) 4 mg IV Q6H PRN PRN Reason: Nausea Stop: 03/04/24 03:27 Rosuvastatin Calcium (Rosuvastatin Calcium 20 Mg Tab) 20 mg PO QAM [facility] Stop: 03/04/24 08:59 Last Admin: 02/03/24 08:42 Dose: 20 mg PG Care Time/CCT Total # of Minutes Spent Total Time Spent with Patient: Total time spent is greater than 50% in coordination of care (as documented) at patient's floor/unit and/or counseling patient: Coding Level of Care Code 40464 INT INP/OBS CARE 3/75MIN Diagnoses Non-ST elevation KS (NSTEMI) I21.4 Dyslipidemia E78.5
[2024-02-03 09:58] LABS: Estimated Average Glucose 117 mg/dl; Hemoglobin A1C 5.7 % (4.5-5.6)
--- NOTE | 2024-02-03 10:48 | Pre Anesthesia Assessment ---
Date of Service February 03, 2024 Pre Sedation Assessment Vital Signs Temp Pulse Pulse Resp BP BP Pulse Ox 02/03/24 08:18 36.4 C L 63 17 112/71 93 02/03/24 03:40 64 02/03/24 03:30 36.6 C 72 16 133/84 98 02/03/24 03:01 36.9 C 60 22 113/77 97 02/03/24 02:30 60 17 123/84 96 02/03/24 02:00 66 17 126/89 98 02/03/24 01:27 62 20 125/90 98 02/03/24 01:06 69 18 122/82 98 02/03/24 00:30 63 22 124/82 97 02/03/24 00:03 97 02/03/24 00:00 69 21 132/86 96 02/02/24 23:42 96 02/02/24 23:29 76 02/02/24 23:19 36.5 C 77 16 142/89 H 98 O2 Del Method 02/03/24 08:18 Room Air 02/03/24 03:40 02/03/24 03:30 Room Air 02/03/24 03:01 Room Air 02/03/24 02:30 Room Air 02/03/24 02:00 02/03/24 01:27 02/03/24 01:06 02/03/24 00:30 02/03/24 00:03 Room Air 02/03/24 00:00 02/02/24 23:42 Room Air 02/02/24 23:29 02/02/24 23:19 Room Air Cardiovascular RRR, no murmur, no edema Respiratory normal respiratory effort, lungs clear to auscultation Pre-Sedation Airway Assessment Smoking Status: Never smoker Mallampati Class: III ASA: ASA3 NPO Status Date of Last Intake of Fluids: 02/02/24 Time of Last Intake of Fluids: 18:00 Date of Last Intake of Solid Food: 02/02/24 Time of Last Intake of Solid Foods: 18:00 Procedure Planning Contraindications for Sedation: none Current Medications Reviewed: Yes Notes The planned sedation has been discussed with the patient. Informed Consent was obtained. I have identified the patient, determined the appropriateness of sedation and have assessed the patient immediately prior to the procedure. All medicine(s) and interventions are by my order.
[2024-02-03] MEDS: niCARdipine 2,000 MCG/20 ML SYR ONE (11:27)
[2024-02-03] MEDS: NITROGLYCERIN/D5W 100MCG/ML 20ML SYR ONE (11:27)
[2024-02-03] MEDS: HEPARIN (PORCINE) 1000 UNIT/ML 10 ML (CATH LAB USE ONLY) ONE (11:30)
[2024-02-03] MEDS: fentaNYL citrate PF 100 MCG/2 ML VIAL ONE (11:30)
[2024-02-03] MEDS: MIDAZOLAM HCL 1 MG/ML 2ML VIAL ONE (11:30)
--- NOTE | 2024-02-03 11:51 | Discharge Summary ---
Date of Service February 03, 2024 Admission HPI Per Admitting Provider 58 y/o with a PMHx of gout and dyslipidemia here for evaluation of chest pain. Patient with non-radiating substernal chest pain. No SOB or diaphoresis. No nausea or vomiting. No change in bowel or urinary habits. No blood in the stool. No abdominal pain or other concerns. No calf pain. No recent long car trips or plane rides. Symptoms started the evening of 01/31 and resolved after a night of sleep. Symptoms recurred today prompting evaluation in the ED. Patient received IV Tylenol and famotidine. Work up was initiated and significant for a trop of 2543.2. Patient given ASA 324 chew and started on a heparin gtt. No ST elevations noted on EKG and chest pain had resolved upon reassessment, so heart alert was not called. Hospitalist team consulted for admission for NSTEMI. Upon my interview patient is chest pain free. No new complaints. Expresses understanding of current condition and is accepting of admission with a full code status. Patient primarily American speaking. at bedside who interprets what the patient does not understand. Admission Exam Per Admitting Provider Gen: well appearing patient in NAD HEENT: AT CT MMM Resp: CTAB no wheezing no increased work of breathing CV: RRR no m/r/g clinically well perfused Abd: soft, non-distended MSK: no obvious deformities Skin: no rashes or bruising Neuro: alert and oriented Psych: appropriate mood and affect Principal Diagnosis NSTEMI with multiple vessel disease requiring CABG Discharge Exam General:Alert and oriented, no acute distress, HEENT: Normocephalic, moist oral mucosa, Cardio: Regular rate and rhythm, no murmur, Resp:Lungs clear to auscultation b/l, no wheezes or rhonchi, Skin: Warm, pink, dry, Discharge Data Allergies Allergy/AdvReac Type Severity Reaction Status Date / Time No Known Allergies Allergy Verified 02/03/24 00:51 Consultations 02/03/24 01:06 ED Decision to Admit Stat 02/03/24 03:28 Consult Cardiology Routine Procedures Performed Operation Date: 02/03/24 11:00 Actual Procedures p Cineradiography w/Routine Exam - Emanuel Gayle MD Ordered Studies 02/03/24 10:39 CL Cath Imgs for PACS use only Routine Hospital Course (1) Non-ST elevation CA (NSTEMI): (2) Chest pain: See above (3) Gout: (4) Dyslipidemia: Plan Pt is a 58 yo American speaking male from [facility] (moved here in 2005) with a past medical history of gout only who presents to the hospital on 02/01 following two episodes of chest pain with the second not relieving on own. Chest pain NSTEMI - EKG is without ST elevations, trop 2500 on admission now up to 3400 and not yet peaked - HA1c 5.7%, lipids; TChol 173, HDL 37, LDL 109, triglyc 135 obtained on 02/03/2024 (today) - cardiology consulted; cath done and showing multivessel CAD requiring cath, requiring transfer to CABG capable facility - denies chest pain this morning prior to transfer Gout - Per [facility] chart review patient is on allopurinol. Not listed on med list in [facility]. Total Time Total Time Spent Total Time Spent (In Minutes): <30 Discharge Plan Discharge Items Patient Disposition: Transfer Acute Care Hospital Reason For Visit: CHEST PAIN Discharge Diagnosis: NSTEMI with multiple vessel disease requiring CABG Activity: As commented below Activity Comment: Activity as tolerated. Non-emergency contact: Primary Care Provider and Sustainability Officer Call non-emergency contact if: you have any medication questions, your symptoms worsen, your pain is not controlled and your pain is worsening Follow-up/Referrals: [facility],Medicine [Primary Care Provider] - Diet: Regular and Heart Healthy Addtl Attending Provider Instructions: Pt is a 58 yo American speaking male from [facility] (moved here in 2005) with a past medical history of gout only who presents to the hospital on 02/01 following two episodes of chest pain with the second not relieving on own. Chest pain NSTEMI - EKG is without ST elevations, trop 2500 on admission now up to 3400 and not yet peaked - HA1c 5.7%, lipids; TChol 173, HDL 37, LDL 109, triglyc 135 obtained on 02/03/2024 (today) - cardiology consulted; cath done and showing multivessel CAD requiring cath, requiring transfer to CABG capable facility - denies chest pain this morning prior to transfer Gout - Per [facility] chart review patient is on allopurinol. Not listed on med list in [employer]. 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 * No lifting over 2 pounds (approximately a 1/2 gallon of milk) with the utilized arm for 24 hours. * No strenuous activity such as bowling or tennis for 3 days. * Keep the site of the procedure covered with a bandage for 24 hours. *You may shower the day after the procedure. Do not take a tub bath or submerge the puncture site in water for the next 3 days. *Do not operate any motorized equipment for 3 days. SPECIAL CARE INSTRUCTIONS: The site may be slightly bruised and sore following your procedure. Should any of the following occur, contact the Dr. who performed your procedure. 1. Redness/inflammation, swelling, chills, or fever, or colored drainage at procedure site within 3-7 days after your procedure. 2. Coldness, discoloration, ongoing numbness, severe pain, or swelling. Expect mild tingling of hand and tenderness at the puncture site for up to three days. If this persists beyond three days, or other symptoms develop, notify the Dr. who performed your procedure. BLEEDING: If the procedure site on your wrist begins to bleed, do not panic 1. Place 1 or 2 fingers firmly just slightly above the insertion site to stop the bleeding. You may be able to feel your pulse as you hold pressure. 2. Lift your finger after 5 minutes to see if the bleeding has stopped. 3. Once the bleeding has stopped, gently wipe the wrist area clean with a bandage. * If the bleeding from your wrist does not stop after 10 minutes, or if there is a large amount of bleeding or spurting, call 911 (do not drive yourself to the hospital). SKIN IRRITATION: * You may experience some redness and/or swelling in the area where radiation was administered. If any skin irritation occurs, please contact your family physician. FOLLOW UP VISIT: Keep any scheduled doctor appointments. Pending Studies at Discharge: No Stand-Alone Forms: My [facility] Skilled Items Patient informed of condition?: Yes DNR: No Discharge Level of Care: Other Communicable Disease: No Discharge Prognosis: Stable Lines: None Urinary Catheter: No Medications and DC Order Prescriptions: No Action No Known Home Medications Discharge Orders: Discharge Order (Routine); Ordered 02/03/24 Ordered By: Mary Alice Dominguez Admission Data Admit Date/Time: 02/03/24 01:40 Attending Provider: Eric Veras Admit Provider: Nkechi Mane Primary Care Provider: [facility],Medicine Other Providers: Estela Doty; Emanuel Gayle Supervising Physician Co-Signing Physician Notes I personally examined the patient and verified all byesr points of history and exam, discussed case, and agree with decision making with Dr Dominguez feeling ok. d/w cardiology - accepted at [facility] / CT surgery eval updated at bedside as well vitals noted nad heent nc at mmm breathing unlabored no accessory muscles good effort skin no rashes no pallor or icterus NSTEMI -3 vessel disease -CT surgery eval -for transfer today otherwise as above Resident Activity Tracking Resident Involvement: Resident Care Provided Care Provided: Adult Hospital Medicine
--- NOTE | 2024-02-03 11:52 | Cardiac Catheterization ---
[facility] Data: Community Specialist Cardiac Status Clinical evaluation leading to the procedure CAD Presenation: Non STEMI Anginal Classification: CCS IV Heart Failure: No Cardiogenic Shock within 24 Hours: No Cardiac Arrest within 24 Hours: No Imaging Studies Past 6 Months: Yes Stress Studies Past 6 Months: No Coronary Anatomy Dominant: Right Diagnostic Physicians Name: Emanuel Gayle MD Status: Elective Closure Device Percutaneous Entry Location: Radial Closure Device: Radial Band Recommendations: CABG Cardiac Cath Procedure Full Procedure Date February 03, 2024 Pre-Procedure Diagnosis Pre-Procedure Diagnosis: Non STEMI AUC Score AUC Score: 8 Post-Procedure Diagnosis Post-Procedure Diagnosis: Severe CAD Procedure(s) Performed Procedure(s) Performed: Coronary Angiography and Left Heart Cath 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 Coronary angiography 2. Left heart catheterization 3. Moderate sedation Indication: Mr. Honeycutt is a 58-year-old gentleman with dyslipidemia who presented with NSTEMI, including rest pain. Chest pain-free during consultation and cardiac catheterization recommended. Written informed consent: Obtained Coronary angiography: 1. Left main: No significant CAD. 2. Left anterior descending: Ostial LAD approximately 30%. Early mid LAD 98%. Mid LAD 100%. Small D1 without significant CAD. LAD receives mild left to left collaterals and more robust right to left collaterals. 3. Circumflex: Mid circumflex 98%. Distal circumflex 80%. Very small caliber OM1. Large OM 2 with ELIZABETH II flow and competitive flow distally. Circumflex distribution receives some filling via right to left collaterals. 4. Right coronary artery: RCA is large and dominant. Proximal RCA 20%. Luminal irregularities throughout the RCA. Diffuse mild CAD of 10-20% of the distal RCA. Large PL without significant CAD. Large PDA mid 80-90%. ELIZABETH-3 flow. Right to left collaterals to the LAD and circumflex distribution. Left heart catheterization: 1. Left ventriculography was not performed. 2. No aortic stenosis. 3. LVEDP 16 mmHg. Moderate sedation: 1. Sedation start time: 11:16 AM 2. Sedation end time: 11:31 AM Impression: 1. Severe multivessel CAD (LAD, circumflex, RCA PDA) with mild left to left and right to left collaterals. 2. Mildly elevated left-sided filling pressure. 3. No aortic stenosis. Plan: 1. Recommend transfer to CT surgery capable center to consider CABG. 2. Risk factor modification including statin therapy. 3. Cardiac rehab. Hemodynamics Rest Ao:: 96/62 Final Ao: 101/63 LV: 95//16 Recommendations Recommendations: CABG Specimens Specimens: None Radiation Exposure (mGy) 555 mGy. Fluoro time 2.9 min. Contrast (mls) 60 Procedural Complication(s) None Disposition PCU I attest to the content of the Intraoperative Record and any orders documented therein. Any exceptions are noted below. [facility] Card Cath Procedure Codes Cardiac Catheterization Procedure 1: Cardiovascular Cath Procedures: 19065 Coronaries and LHC (+/-LV) Moderate Sedation Procedure 1: Sedation/Anesthesia: 24200 Mod Sedation by the same physician;Init15 Min Child Age 5 & Up PG Care Time/CCT Total # of Minutes Spent Total Time Spent with Patient: Total time spent is greater than 50% in coordination of care (as documented) at patient's floor/unit and/or counseling patient:
--- NOTE | 2024-02-03 12:03 | Post Anesthesia Assessment ---
Date of Service February 03, 2024 Post Sedation Assessment Vital Signs Temp Pulse Pulse Resp BP BP Pulse Ox 02/03/24 11:55 62 16 117/79 99 02/03/24 11:40 69 16 105/68 99 02/03/24 08:18 36.4 C L 63 17 112/71 93 02/03/24 03:40 64 02/03/24 03:30 36.6 C 72 16 133/84 98 02/03/24 03:01 36.9 C 60 22 113/77 97 02/03/24 02:30 60 17 123/84 96 02/03/24 02:00 66 17 126/89 98 02/03/24 01:27 62 20 125/90 98 02/03/24 01:06 69 18 122/82 98 02/03/24 00:30 63 22 124/82 97 02/03/24 00:03 97 02/03/24 00:00 69 21 132/86 96 02/02/24 23:42 96 02/02/24 23:29 76 02/02/24 23:19 36.5 C 77 16 142/89 H 98 O2 Del Method 02/03/24 11:55 Room Air 02/03/24 11:40 Room Air 02/03/24 08:18 Room Air 02/03/24 03:40 02/03/24 03:30 Room Air 02/03/24 03:01 Room Air 02/03/24 02:30 Room Air 02/03/24 02:00 02/03/24 01:27 02/03/24 01:06 02/03/24 00:30 02/03/24 00:03 Room Air 02/03/24 00:00 02/02/24 23:42 Room Air 02/02/24 23:29 02/02/24 23:19 Room Air Recovery Score Activity: Moves 4 extremities Respiration: Deep Breath/Cough Circulation: +/-20% PreAnes Value Consciousness: Fully Awake Oxygen Saturation: > 92% On Room Air Post Anesthesia Score: 10 Discharge Sedation Level of Care: Fast Track Phase II Post Sedation Plan On clinical assessment, the patient appears to have tolerated the sedation without complications. Patient is recovering as anticipated. Patient will continue to be monitored by nursing and may be discharged when sedation discharge criteria are met per below protocol. Upon Completions of procedure up to 15 minutes continue every 5 minute vital signs and the P.A.R. score; then discharge to a Phase I or Fast Track to Phase II per the following guidelines: * Discharge Patient to appropriate Phase II area if PAR is 8 or greater or return to pre- procedure baseline. The post - procedure orders will be as directed. * If PAR score is less than 8 or not return to pre-procedure baseline then patient will follow Phase I monitoring till PAR is reached for Phase II. The Phase I may be done in procedure room or may call to secure a Phase I area. * If naloxone or flumazenil are used for reversal, hold in Phase I for continued monitoring from when last reversal dose was given for a minimum of 60 minutes or longer pending the nurse and/or physician discretion of patient condition before discharge to Phase II. Please call the Sedation Physician to re-evaluate and complete post-note for discharge to Phase II area. Do NOT discharge from procedure sedation or Phase 1 until post- sedation evaluation note is complete by procedure /sedation MD Sedation Discharge Instructions to be given to the patient at discharge to home.
--- NOTE | 2024-02-03 13:11 | XCELERA ---
[id number]
[2024-02-03 15:17] VITALS: O2SAT 99
[2024-02-03 16:22] LABS: ANTI-Xa, UFH(UnfractionatedHep 0.44 IU/ml (0.3-0.7)
--- NOTE | 2024-02-03 16:47 | Electrocardiogram Report ---
Test Reason : Blood Pressure : */* mmHG Vent. Rate : 70 BPM Atrial Rate : 70 BPM P-R Int : 156 ms QRS Dur : 78 ms QT Int : 372 ms P-R-T Axes : 60 1 104 degrees QTcB Int : 401 ms Normal sinus rhythm Septal infarct , age undetermined Nonspecific ST and T wave abnormality Abnormal ECG When compared with ECG of 10-Sep-2023 13:16, Septal infarct is now Present ST now depressed in Inferior leads ST no longer elevated in Anterior leads ST now depressed in Lateral leads Inverted T waves have replaced nonspecific T wave abnormality in Lateral leads Confirmed by Emanuel Gayle ([id number]) on 02/03/2024 4:46:53 PM Referred By: Confirmed By: Emanuel Gayle
--- NOTE | 2024-02-03 16:47 | Electrocardiogram Report ---
Test Reason : Blood Pressure : */* mmHG Vent. Rate : 64 BPM Atrial Rate : 64 BPM P-R Int : 162 ms QRS Dur : 80 ms QT Int : 382 ms P-R-T Axes : 62 -6 86 degrees QTcB Int : 394 ms Normal sinus rhythm Nonspecific T wave abnormality Abnormal ECG When compared with ECG of 02-Feb-2024 23:27, Criteria for Septal infarct are no longer Present Confirmed by Emanuel Gayle ([id number]) on 02/03/2024 4:47:14 PM Referred By: REFERRED SELF Confirmed By: Emanuel Gayle
[2024-02-03 17:40] VITALS: BP 122/83; PULSE 55; RESP 16; TEMP 97.7
--- NOTE | 2024-02-03 17:55 | Billing Data ---
Date of Service February 03, 2024 Coding Level of Care Code 40798 IN/OBS DISCH 30 MIN/LESS
--- NOTE | 2024-02-04 18:30 | Electrocardiogram Report ---
Test Reason : Blood Pressure : */* mmHG Vent. Rate : 58 BPM Atrial Rate : 58 BPM P-R Int : 164 ms QRS Dur : 94 ms QT Int : 414 ms P-R-T Axes : 60 6 93 degrees QTcB Int : 406 ms Sinus bradycardia Increased R/S ratio in V1, consider early transition or posterior infarct Nonspecific T wave abnormality Abnormal ECG When compared with ECG of 03-Feb-2024 02:11, No significant change was found Confirmed by Emanuel Gayle ([id number]) on 02/04/2024 6:29:40 PM Referred By: REFERRED SELF Confirmed By: Emanuel Gayle
== END 2024-02-03 19:57 | disposition short-term general hospital (02) | DRG 282 ==
LOC: ED 23:15 → 2S 02-03 01:40 → SUATTDRO 02-03 01:40 → 2S 02-03 03:01